=== PATIENT | male | born 1960 | race Caucasian/White ===

== ENCOUNTER 2016-10-15 07:06 | Day surgery (SDC) | payer BC ==
[~2016-10-15 07:06] MED LIST: Midazolam 1 MG/ML 2 ML SDV ONE; Propofol 200 MG/20 ML SDV ONE; fentaNYL 100 MCG/2 ML SDV ONE
[2016-10-15] MEDS ORDERED: Dextrose 5%-Lactated Ringers 1,000 ML IV SCH (07:30)
[2016-10-15] MEDS ORDERED: Glycopyrrolate 0.2 MG/ML 2 ML SYRINGE IVPUSH ONE (08:15)
[2016-10-15] MEDS ORDERED: Ondansetron 4 MG/2 ML SDV ONE (09:29)
[2016-10-15] MEDS ORDERED: Propofol 200 MG/20 ML SDV ONE (09:33)
[2016-10-15 10:54] VITALS: BP 155/98
--- NOTE | 2016-10-16 11:09 | OR ---
DATE OF PROCEDURE: 10/15/2016 PREOPERATIVE DIAGNOSIS: Positive FIT test. POSTOPERATIVE DIAGNOSIS: Uncomplicated colonic diverticulosis. OPERATIVE PROCEDURE: Flexible colonoscopy. ANESTHESIA: IV sedation. INDICATION FOR PROCEDURE: This 56-year-old has been having a yearly FIT test, had a positive FIT test recently, and he is referred, therefore, for colonoscopy with biopsies and/or polypectomy as indicated. Potential risks including bleeding and perforation were discussed and the patient wishes to proceed. NARRATIVE: The patient was taken to the operating room and placed in a left lateral decubitus position. IV sedation was administered, after which the initial digital rectal exam was performed and was unremarkable. Colonoscope was then passed eventually to the level of the cecum. The prep was quite good with ehre only being a thin layer of liquid stool intermittently covering some surfaces of the colon to that level. The patient had an uncomplicated left-sided diverticulosis, otherwise there are no polyps or other signs of neoplasia and no evidence of colitis. The scope was then withdrawn and the above findings confirmed. The procedure was concluded. The patient was taken to the recovery room in satisfactory condition. There were no evident complications. Adam Swan MD /[id number]
== END 2016-10-15 10:54 | disposition home or self-care (01) ==
LOC: JP.SDS 07:06
PROVIDERS: ATTEND Surgery
DX: Z12.11 Encounter for screening for malignant neoplasm of colon (principal); K57.30 Diverticulosis of large intestine without perforation or abscess without bleeding; I10 Essential (primary) hypertension; K21.9 Gastro-esophageal reflux disease without esophagitis; Z88.1 Allergy status to other antibiotic agents; Z88.8 Allergy status to other drugs, medicaments and biological substances; Z91.041 Radiographic dye allergy status
CPT/HCPCS: 45378; J2250; J2405; J2704; J3010; J7042

== ENCOUNTER 2022-09-22 15:01 | Emergency (ER) | payer BC, OTHER ==
[2022-09-22 17:23] VITALS: BP 149/102; PULSE 94
== END 2022-09-22 17:53 | disposition home or self-care (01) ==
LOC: JP.ED 15:01
DX: I10 Essential (primary) hypertension (principal); E78.00 Pure hypercholesterolemia, unspecified; K21.9 Gastro-esophageal reflux disease without esophagitis; E66.9 Obesity, unspecified; Z68.42 Body mass index [BMI] 45.0-49.9, adult; Z88.1 Allergy status to other antibiotic agents; Z88.8 Allergy status to other drugs, medicaments and biological substances
CPT/HCPCS: 99283